=== PATIENT | female | born 1960 | race Two or more races ===

== ENCOUNTER 2022-10-06 05:45 | Day surgery (SDC) | payer OTHER ==
[2022-10-06] MEDS ORDERED: TRAM1TAB98 PO (12:15)
[2022-10-06] MEDS ORDERED: CEPHALEXIN750 MG PO (12:16)
== END 2022-10-06 17:00 | disposition home or self-care (01) ==
LOC: CIR.AMB 05:45
PROVIDERS: ATTEND Obstetrics & Gynecology Gynecology
DX: N32.81 Overactive bladder (principal); N39.41 Urge incontinence; F17.210 Nicotine dependence, cigarettes, uncomplicated; Z20.822 Contact with and (suspected) exposure to COVID-19
CPT/HCPCS: 64581; 64590; 95972; C1778; L8679